=== PATIENT | male | born 1960 | race Caucasian/White ===

== ENCOUNTER 2017-10-02 07:30 | Inpatient (IN) ==
[~2017-10-02 07:30] MED LIST: ACETAMINOPHEN 500 MG TABLET PO ONE; DEXAMETHASONE 4 MG/ML INJECTION IVP ONE; FAMOTIDINE PB 20 MG/50 ML BAG IV ONE; LIDOCAINE 1% (10mg/ml) 2mL INJ PF SDV ID ONE; MELOXICAM 15 MG TABLET PO ONE; METOCLOPRAMIDE 10mg/2ml INJECTION IVP ONE; ONDANSETRON 4 MG/2 ML INJECTION IVP ONE; TRANEXAMIC ACID 1,000 MG in NS 100 ML IV ONE
[2017-10-02] MEDS ORDERED: EPINEPHrine PF 0.25 MG, BUPIVACAINE 0.25% PF 30 ML, MORPHINE SULFATE 15 MG, KETOROLAC I... OPSITE ONE (08:00)
[2017-10-02] MEDS ORDERED: CEFAZOLIN 1 G INJECTION IVP ONE (11:10)
[2017-10-02 11:17] VITALS: BMI 39.2
[2017-10-02] MEDS: LR 1,000 ML IV SCH ×2 (11:27→15:00)
[2017-10-02] MEDS: NOZIN NASAL SWAB NAS SCH ×4 (12:40→22:08)
[2017-10-02] MEDS ORDERED: MIDAZOLAM 2mg/2ml INJECTION ONE (13:01)
[2017-10-02] MEDS ORDERED: FentaNYL 100 MCG/2 ML INJECTION ONE (13:01)
[2017-10-02] MEDS ORDERED: PROPOFOL 0 MG/0 ML VIAL ONE (13:02)
--- NOTE | 2017-10-02 13:44 | Anesthesia Preoperative Report ---
Anesthesia Preoperative Record - Date and Time Date: 10/02/17 Preoperative Diagnosis: Lt TKA M17.12 NPO Since Date: 10/01/17 NPO Since Time: 21:00 Allergies/Adverse Reactions: Allergies Allergy/AdvReac Type Severity Reaction Status Date / Time No Known Drug Allergies Allergy Verified 10/02/17 11:38 - Vital Signs Vital Signs: Temperature 98.4 F 10/02/17 11:15 Pulse Rate 72 10/02/17 13:00 Respiratory Rate 16 10/02/17 11:15 Blood Pressure 134/73 10/02/17 13:00 Pulse Oximetry 98 10/02/17 11:15 Height and Weight: Height 1.83 m Weight 131.3 kg Body Mass Index 39.2 - Medications Inpatient Medications: Current Medications Epinephrine HCl 0.25 mg/Bupivacaine HCl 30 ml/Morphine Sulfate 15 mg/Ketorolac Tromethamine 60 mg/Sodium Chloride 65.25 mls @ 1 mls/hr OPSITE INTRAOP ONE PRN Reason: Protocol Stop: 10/05/17 01:14 Lactated Ringer's (Lactated Ringers) 1,000 mls @ 50 mls/hr IV .Q20H [facility] Last Admin: 10/02/17 11:27 Dose: 50 mls/hr Isopropyl Alcohol (Nozin Nasal Swab) 1 each GOVIND Q1M [facility] Stop: 10/02/17 15:33 Last Admin: 10/02/17 12:47 Dose: 1 each Sodium Chloride (Iv Flush) 10 - 80 ml IV PRN PRN PRN Reason: [place] Home Medications: Home Medications Medication Instructions Recorded Confirmed Type Mometasone Furoate [Elocon] 15 gm TP BID PRN #0 05/02/13 08/01/17 History Valsartan [Diovan] 80 mg PO DAILY #0 05/02/13 10/02/17 History Viagra 50Mg Tab [Viagra] 50 mg PO PRN #0 05/02/13 08/01/17 History Allopurinol [Zyloprim] 300 mg PO DAILY 08/01/17 10/02/17 History Aspirin [Aspirin EC] 81 mg PO DAILY 08/01/17 10/01/17 History Atenolol [Tenormin] 25 mg PO DAILY 08/01/17 10/02/17 History Liraglutide [Victoza] 1.2 mg SQ DAILY 08/01/17 10/02/17 History Meloxicam [Meloxicam] 7.5 mg PO BID 08/01/17 10/01/17 History Multivitamin [One Daily 2 each PO DAILY 08/01/17 10/02/17 History Multivitamin] [place]-3 Fatty Acids/Fish Oil [Fish 1 each PO BID 08/01/17 10/01/17 History Oil 1,200 mg Softgel] Omeprazole [Prilosec] 1 cap PO ACB 08/01/17 10/02/17 History Potassium Chloride [Potassium 10 meq PO DAILY 08/01/17 10/02/17 History Chloride] Is Patient on Beta Nicolle?: Yes Beta Nicolle Last Dose Date/Time: 10/02/17 @ 2100 - Medical History Respiratory: Reports: Sleep Apnea (wears cpap most nights) Cardiovascular: Reports: Hypertension Gastrointestional: Reports: Gastroesophageal Reflux Disease, Morbid Obesity Neuro/Musculoskeletal: Reports: HX.MS.OSAR, Back Problems (soreness), Other ( gout) Renal/Endocrine: Reports: Diabetes Mellitus Type 2 (per h&p), Other (on Victoza to help him lose weight) - Surgical History Respiratory Surgery/Treatments: Reports: CPAP Use GI Surgery/Treatments: Reports: Other (repair rectal fistula) Musculoskeletal Surgery/Tx: Reports: Knee Arthroscopy (left) Reproductive Surgery/Treatment: Reports: Vasectomy, Other (ED) Anesthesia Reactions: None Hx Family Anesthesia Reaction: No History of Motion Sickness: No - Social History Smoking Status: Never smoker Hx Chewing Tobacco Use: No Second Hand Exposure: No Substance Use Type: does not use Alcohol Intake: current Alcohol Intake Frequency: does not drink - Pertinent Findings Laboratory: CBC and BMP 10/02/17 11:20 BMP 10/02/17 11:20 Sodium 142 Potassium 3.8 Chloride 106 Carbon Dioxide 27 BUN 15.0 Creatinine 0.7 L Glucose 98 Calcium 9.8 EKG: Sinus Rhythm - Physical Exam Respiratory Exam: Present: lungs clear, bilateral breath sounds equal Cardiovascular Exam: Present: regular rate and rhythm - Airway Assessment Mallampati Score: II TMD: 3 Fingerbreadths Neck Extension: fair Overall Assessment: may be difficult intubation (large tongue, morbidly obese, small mouth opening) - ASA ASA Score: 3 - Plan Anesthesia: General Inhalation Gases, Neuroaxial Regional/Trunk Block: Spinal Peripheral Nerve Block: Saphenous-Left - Discussion Discussion: Discussed risks/options/alternatives of anesthesia and questions answered. Patient consents. Nursing pain assessment noted. Present for Discussion: family member Attestation Statement: Prior to the delivery of any anesthetic medication, I examined the patient, developed the plan, obtained the patient's consent and discussed the risk and benefits of the procedure with the patient/guardian. - Additional Information Seen by Anesthesia: Yes
[2017-10-02] MEDS ORDERED: VANCOMYCIN 1,000 MG INJECTION ONE (13:49)
[2017-10-02] MEDS ORDERED: VANCOMYCIN 1,000 MG INJECTION IAR ONE (13:56)
[2017-10-02] MEDS ORDERED: SALINE FLUSH 10ml SYRINGE ONE ×2 (14:42→15:28)
[2017-10-02] MEDS ORDERED: EPHEDRINE 50mg/ml INJECTION ONE (14:42)
[2017-10-02] MEDS ORDERED: KETAMINE 500 MG/10 ML INJECTION ONE (14:56)
[2017-10-02] MEDS ORDERED: PROPOFOL 500 MG/50 ML VIAL ONE (14:59)
[2017-10-02] MEDS ORDERED: PROPOFOL 1,000 MG/100 ML VIAL ONE (15:17)
[2017-10-02] MEDS ORDERED: SALINE FLUSH 10ml SYRINGE IV PRN (15:17)
[2017-10-02] MEDS ORDERED: ROPIVACAINE 0.5% (5mg/ml) 30ml INJ ONE (16:13)
--- NOTE | 2017-10-02 16:16 | Operative Note ---
- Procedure Preoperative Diagnosis: Left knee primary degenerative joint disease Postoperative Diagnosis: Same as preoperative diagnosis. Surgeon: Farhana Joya MD Plastic Cutter: Saturnino Kuo Complications: None. Anesthesia: Spinal. Estimated Blood Loss: See Anesthesia Record. Fluids: Please see Anesthesia Record. Desciption of Procedure: Mr. Burns and his left knee were identified and marked in the preoperative holding area. He was brought back to the operating suite. Spinal anesthetic was administered and he was placed supine on the operating table. The left lower extremity was prepped and draped in my normal sterile fashion. Timeout was performed. The [employer] robotic arm was used during the surgery. He has fixed varus deformity with a flexion contracture of 5-7. A standard anterior midline incision followed by medial parapatellar arthrotomy was performed. Anterior fat pad and meniscus were removed. The patella was everted and a patellar osteotomy was performed leaving 14 mm of bone. Tibial and femoral arrays and checkpoints were placed both within the original incision. The bone was then registered with the [employer] robot. Osteophytes were removed and gaps were captured both 90 and 0 with correction. [employer] robotic software was utilized to manipulate components to obtain an 18 mm gaps throughout. This was done by externally rotating the femur as well as placing 1 degree of valgus on the femur. The [employer] robotic arm was then used to assist with the bone cuts. Posterior osteophytes and remaining meniscus were removed. Trial components were placed. We used a 6 femur and a 6 tibia with a 9 mm spacer and a 35 patella. He tracked well and was well balanced throughout range of motion after partial release of the PCL. The tibia was stamped at the proper rotation. Trial components fit well and bone quality was adequate so we proceeded with press-fit components. Components were press-fit into place. A final spacer was also placed. The knee was ranged one more time to ensure good stability, balance and patellar tracking. 1 g of vancomycin powder was then placed into the knee joint. The capsulotomy was then closed with #1 Vicryl. I then left my server assistant to close the subcutaneous tissue with 2-0 Vicryl. Running 4-0 Monocryl will be used in the subcuticular layer. Dermabond will be used on the skin followed by sterile dressing. After drapes are removed patient will be taken to recovery room under the care of anesthesia.
--- NOTE | 2017-10-02 16:49 | Anesthesia Procedure Note ---
Peripheral Nerve Blockade - Procedure Physician: Ovidio Joya MD Date: 10/02/17 Discussion: Discussed risks/options/alternatives of anesthesia and questions answered. Patient consents. Nursing pain assessment noted. Block Start: 16:43 (time out) Block Stop: 16:45 Blocked Employed: Adductor Canal, Single Injection Indication: Post-Operative Pain Approach: Left Side Confirmed Position: Supine Patient: Consent, Risks/Benefits Discussed, Informed, Post Block Act. Discussed IV Sedation: No (post op spinal) Sedation: Sedate w/Meaningful Contact Initial Vital Signs: Temperature 98.4 F 10/02/17 11:15 Temperature Source Oral 10/02/17 11:15 Pulse Rate 77 10/02/17 11:15 Respiratory Rate 16 10/02/17 11:15 Blood Pressure 158/102 H 10/02/17 11:15 Blood Pressure Mean 120 10/02/17 11:15 Blood Pressure Position Sitting 10/02/17 11:15 Pulse Oximetry 98 10/02/17 11:15 Oxygen Delivery Method 10/02/17 11:15 Post Vital Signs: Temperature 98.4 F 10/02/17 11:15 Pulse Rate 72 10/02/17 13:00 Respiratory Rate 16 10/02/17 11:15 Blood Pressure 134/73 10/02/17 13:00 Pulse Oximetry 98 10/02/17 11:15 Ultrasound Used?: Yes - Nerve Simulator Needle Depth: 4 Muscle Response: No Paresthesia/Pain: None - Injectate Ropivacaine (%): 0.5 Ropivacaine (mL): 20 Was Epi 1:200,000 Used?: No Injection: Injection made incrementally with constant monitoring and aspiration every 5 ml
[2017-10-02] MEDS ORDERED: DiphenhydrAMINE 50 MG/ML INJECTION IVP PRN (17:29)
[2017-10-02] MEDS ORDERED: LORazepam 1 MG TABLET PO PRN (17:29)
[2017-10-02] MEDS ORDERED: INSULIN ASPART 100unit/ml INJECTION SQ PRN (17:29)
[2017-10-02] MEDS ORDERED: DiphenhydrAMINE 25 MG CAPSULE PO PRN (17:29)
[2017-10-02] MEDS ORDERED: GLUCOSE ORAL GEL 40% 37.5gm PO PRN (17:29)
[2017-10-02] MEDS ORDERED: NOZIN NASAL SWAB NAS ONE (17:29)
[2017-10-02] MEDS ORDERED: ONDANSETRON 4 MG/2 ML INJECTION IVP PRN (17:29)
--- NOTE | 2017-10-02 17:31 | Anesthesia Postoperative Note ---
- Date and Time Date: 10/02/17 Time: 17:30 - Status Patient Participated in Evaluation: Patient Participated in Person Vital Signs: Temperature 97.1 F 10/02/17 17:06 Pulse Rate 80 10/02/17 17:05 Respiratory Rate 19 10/02/17 17:05 Blood Pressure 110/65 10/02/17 17:05 Pulse Oximetry 91 10/02/17 17:05 Respiratory Function: Airway Patent Cardiovascular Function: Regular Pulse EKG: Sinus Rhythm Mental Status: Alert and Oriented Pain Intensity: 0 Hydration: Taking PO Fluids Complications During Recover: None Apparent - Follow-Up Instructions Instructions: Per Surgeon
[2017-10-02] MEDS: NS 1,000 ML IV SCH (17:34)
[2017-10-02] MEDS: ACETAMINOPHEN 325 MG TABLET PO SCH ×2 (17:39→22:09)
[2017-10-02] MEDS ORDERED: SENNOSIDES 8.6 MG TABLET PO SCH (21:00)
[2017-10-02] MEDS: ASPIRIN *EC* 81 MG TABLET PO SCH (22:09)
[2017-10-02] MEDS: DOCUSATE SODIUM 100 MG CAPSULE PO SCH (22:10)
[2017-10-02] MEDS: Oxycodone *IR* 5 MG TABLET PO PRN ×2 (22:10→23:01)
[2017-10-02] MEDS: OMEGA-3 ACID ESTERS 1 GM CAPSULE PO SCH (22:31)
[2017-10-02] MEDS: CEFAZOLIN 3 G in NS 100 ML IV SCH (22:31)
[2017-10-03] MEDS: Oxycodone *IR* 5 MG TABLET PO PRN ×3 (03:22→11:04)
[2017-10-03] MEDS: NS 1,000 ML IV SCH (05:36)
[2017-10-03] MEDS: NOZIN NASAL SWAB NAS SCH (05:36)
[2017-10-03] MEDS: CEFAZOLIN 3 G in NS 100 ML IV SCH (05:37)
[2017-10-03] MEDS ORDERED: OMEPRAZOLE 20 MG CAPSULE PO SCH (06:30)
[2017-10-03 07:57] VITALS: BP 131/69; PULSE 61; RESP 20; TEMP 97.8; O2SAT 95
[2017-10-03] MEDS: ASPIRIN *EC* 81 MG TABLET PO SCH (08:00)
[2017-10-03] MEDS: DOCUSATE SODIUM 100 MG CAPSULE PO SCH (08:00)
[2017-10-03] MEDS: OMEGA-3 ACID ESTERS 1 GM CAPSULE PO SCH (08:01)
--- NOTE | 2017-10-03 08:36 | Orthopedic Progress Note ---
Date: Date: 10/03/17 Time: 829 Subjective/Severity of Illness: Jose is doing very well this AM. He has been mobile with good tolerance. No complaints or concerns. Pain is controlled. His pre op labs showed an A1c of 5.4 and his PCP listed DM II as a dx. He is on Victoza SQ injections for "appetite suppression" but might also be for CV risk reduction. His blood sugars were 155 this AM but he had not been placed NPO for the lab. Remaining labs are stable. Afebrile. Orthopedic Objective PO Vital signs: Temperature 97.8 F 10/03/17 07:51 Pulse Rate 61 10/03/17 07:51 Respiratory Rate 20 10/03/17 07:51 Blood Pressure 131/69 10/03/17 07:51 Pulse Oximetry 95 10/03/17 07:51 Height and Weight: Height 6 ft Weight 294 lb 8.601 oz Body Mass Index 39.2 - Constitutional General Appearance: Present: alert, cooperative, no acute distress - Respiratory Exam Present: non-labored - Cardiovascular Exam Present: pedal pulses intact - Extremities Exam Extremities: Present: pulses intact. Absent: calf tenderness - Surgical Site Incision: Mepilex dressing intact, no drainage - Neurological Exam Present: intact to light touch, no deficits - Psychiatric Exam Present: alert, normal affect - Labs Result Diagrams: 10/03/17 04:35 10/03/17 04:35 Abnormal lab results 10/02/17 10/03/17 10/03/17 Range/Units 11:20 04:35 04:35 Hgb 12.5 L (13.5-17.5) GM/DL Hct 39.0 L (41-53) % Creatinine 0.7 L 0.7 L (0.8-1.5) MG/DL Glucose 155 H (75-110) MG/DL H & H 10/03/17 Range/Units 04:35 Hgb 12.5 L (13.5-17.5) GM/DL Hct 39.0 L (41-53) % Orthopedic Assessment and Plan (1) Primary osteoarthritis of left knee Status: Acute Assessment and Plan: Aspirin protocol for VTE prophylaxis x 6 weeks. SCD's and early mobilization for added DVT coverage. PT/OT services to improve independent function. Plan discharge later today if medically stable and passing PT. Pt will f/u with his PCP regarding DM diagnosis and treatments. Discharge Planning per Case Management. - Anticoagulation Therapy Anticoagulation: ASA 81 mg PO BID x6 weeks Hospital Course Summary Disclaimer: The visit summary below is not to be considered part of the above Progress Note.
[2017-10-03] MEDS: ACETAMINOPHEN 325 MG TABLET PO SCH ×2 (08:47→12:53)
[2017-10-03] MEDS ORDERED: ATENOLOL 25 MG TABLET PO SCH (09:00)
[2017-10-03] MEDS ORDERED: ALLOPURINOL 300 MG TABLET PO SCH (09:00)
[2017-10-03] MEDS ORDERED: POLYETHYL GLYCOL 3350 17gm PACKET PO SCH (09:00)
[2017-10-03] MEDS ORDERED: LIRAGLUTIDE INJECTABLE PEN SQ SCH (09:00)
[2017-10-03] MEDS ORDERED: Valsartan 80 MG TABLET PO SCH (09:00)
[2017-10-03] MEDS ORDERED: MELOXICAM 7.5 MG TABLET PO SCH (09:00)
--- NOTE | 2017-10-03 10:20 | XRay Report ---
Indication: postoperative image PROCEDURE: XR knee LT 2V: Encounter: Initial Comparison: 07/23/2017 Findings: The patient has had a left total knee arthroplasty. The alignment is anatomic without lucency around the prosthesis or angulation. No definite effusion. There is some overlying splint artifact. Impression: Anatomic alignment status post left total knee arthroplasty. .
--- NOTE | 2017-10-03 13:56 | Discharge Summary ---
Orthopedic Discharge Info Date of admission: 10/02/17 10:11 Primary care physician: Malachi Sorto DO Attending Physician: Ovidio Joya MD Consults: 10/02/17 10:54 Consult to Anesthesiology [CONS] Routine Reason For Exam: Preoperative Assessment 10/02/17 17:29 Case Management Consult [CONS] Routine Reason For Exam: Discharge Planning DME-Walker [CONS] Routine Height: 6 ft Weight: 289 lb 7.471 oz Total Joint Outpatient Therapy [CONS] Routine Comment: Remove dressing in 2 weeks - Discharge Diagnosis (1) Primary osteoarthritis of left knee Status: Acute - Procedures Procedures: Left TKA - Laboratory Result Diagrams: 10/03/17 04:35 10/03/17 04:35 Laboratory: Abnormal lab results 10/03/17 10/03/17 Range/Units 04:35 04:35 Hgb 12.5 L (13.5-17.5) GM/DL Hct 39.0 L (41-53) % Creatinine 0.7 L (0.8-1.5) MG/DL Glucose 155 H (75-110) MG/DL H & H 10/03/17 Range/Units 04:35 Hgb 12.5 L (13.5-17.5) GM/DL Hct 39.0 L (41-53) % Orthopedic Discharge HPI - HPI Comments This patient was admitted for elective surgical tx of end stage degenerative joint disease that failed to respond to conservative treatment. Further details of this is found in the admission H&P. Orthopedic Hospital Course Hospital course: 10/03/17 13:52 After appropriate preoperative clearance and signing of operative consent, the patient was given IV antibiotics, according to orthopedic protocol. The patient was taken to the operating room and underwent elective joint arthroplasty. Following surgery, antibiotics were discontinued less than 24 hours according to joint protocol. Appropriate anticoagulants were initiated and SCDs added for DVT prevention. The dressing was clean, dry, and intact. Pain control was obtained via multimodal approach. Bowel motivation addressed with scheduled and PRN medications. Early mobilization was initiated through PT services. Discharge arrangements made by a collaborative effort between the patient and Case Management. Follow-up is scheduled in 2-3 weeks. Discharge instructions given by orthopedic providers and nursing staff at discharge. Discharge condition was good. Care extended to > 2 midnight stays?: No Discharge Plan - Med Rec/Dispo Referrals/Follow Up: Ovidio Joya MD [Physician] - 10/24/17 9:15 am Alvar[place] Instructions: [facility] [place] Postop Instructions Prescriptions: New Aspirin *EC* [Ecotrin] 81 mg PO BID #84 tab Oxycodone *IR* [Roxicodone *Ir*] 5 - 15 mg PO Q3H PRN #60 tab PRN Reason: Breakthrough Pain PEG 3350 17gm PACKET [Miralax] 17 gm PO DAILY packet Acetaminophen [Tylenol] 650 mg PO QID tab Continue Mometasone Furoate [Elocon] 15 gm TP BID PRN #0 Omeprazole [Prilosec] 1 cap PO ACB Multivitamin [One Daily Multivitamin] 2 each PO DAILY Meloxicam 7.5 mg PO BID Liraglutide [Victoza] 1.2 mg SQ DAILY Potassium Chloride 10 meq PO DAILY [place]-3 Fatty Acids/Fish Oil [Fish Oil 1,200 mg Softgel] 1 each PO BID Viagra 50Mg Tab [Viagra] 50 mg PO PRN #0 Valsartan [Diovan] 80 mg PO DAILY #0 Atenolol [Tenormin] 25 mg PO DAILY Allopurinol [Zyloprim] 300 mg PO DAILY ergocalciferol (vitamin D2) 50,000 unit capsule 50,000 unit PO DAILY #2 cap Discontinued Aspirin [Aspirin EC] 81 mg PO DAILY - Disposition 01 Discharged Home, Self-Care - Dismissal Complete Discharge Instructions are:: Complete
[2017-10-03] MEDS ORDERED: SENNOSIDES 8.6 MG TABLET PO PRN (16:39)
[2017-10-04] MEDS ORDERED: BISACODYL 10 MG SUPPOSITORY RECTALLY SCH (20:00)
== END 2017-10-03 14:15 | disposition home or self-care (01) | DRG 470 ==
LOC: EDSTATUS 07:30 → NMC.PERIOP 10:11 → SRG 17:30
PROVIDERS: ADMIT Orthopaedic Surgery; ATTEND Orthopaedic Surgery